=== PATIENT | male | born 2000 | race Caucasian/White ===

== ENCOUNTER → 2018-07-25 17:37 | Outpatient (CLI) | payer OTHER, SELFPAY ==
--- NOTE | 2018-07-25 17:53 | MRI_ITS ---
STUDY: MR PELVIS WITHOUT CONTRAST REASON FOR EXAM: Male, 18 years old. Bilateral groin pain for 2 years after football injury. TECHNIQUE: Standardized fat and water weighted pulse sequences were obtained in all 3 orthogonal planes. COMPARISON: None. FINDINGS: Intrapelvic: Normal features of the evaluated portions of the large bowel, rectum, small bowel, pelvic floor and sidewalls, prostate, seminal vesicles, urinary bladder, distal ureters. Myotendinous structures: Normal appearance of the anterior abdominal wall musculature, symmetric and normal appearance of the pelvic girdle musculature, and of the distal psoas and paraspinous muscles. There is no evidence of muscular strain, muscular tear, or bursitis. Lumbosacral spine: Normal disc intervals between L3 and S1. No degenerative features of the lumbar spine. No evidence of stenosis. Normal sacrum, coccyx and SI joints. Bony pelvis: Intact. There is no bone edema. There is no evidence of prior fracture. Lymphadenopathy: There is no inguinal lymphadenopathy or intrapelvic lymphadenopathy. Inguinal canals: No evidence of hernia. Right hip: Normal right hip joint and proximal femur. Left hip: Normal left hip joint and proximal Scrotal contents: Normal. Femur. MRI/Pelvis (Routine) IMPRESSION: Normal unenhanced MRI of the pelvis. Electronically Signed: Jeevan Mcgregor, at 19:29 EST Tel , Service support ,
== END ==
PROVIDERS: Family Provider Family Medicine; PCP Family Medicine; Referring Provider Family Medicine; Visit Provider Family Medicine
DX: S76.219A Strain of adductor muscle, fascia and tendon of unspecified thigh, initial encounter (principal)
CPT/HCPCS: 72195

== ENCOUNTER 2018-09-11 07:30 | Outpatient (RCR) | payer OTHER, SELFPAY ==
--- NOTE | 2018-08-09 09:47 | HP.PTEVAL ---
Patient's Visit Information BELEN BROWNE is a 18 year old M referred to Physical Therapy by Vel Brink with a diagnosis of Groin strain. Date of Evaluation: 08/09/18 Physical Therapist: Lamont Dunne DPT, OC - Visit Plan Frequency: 3x /Week Duration: 4-6 Weeks Plan: 3x/week for 2-4 weeks for : US thermal to R groin area psoas. STM to R Adductors hip and stretch. Eccentric strength to R adductors. Gradual progression of hip strength. HEP R hip strength ecc adductors. Progression to squat as pain allows monitorring technique. - Subjective Findings: R groin, waist and abs Painful for 2 years, had therapy but did not go away. Normally it is annoying 2/10 intermittently. Up to 7/10 some days worse at end of work week and after working out. Enjoys runnign but is sometimes worse after squatting. Is an [employer] and on feet all day. Some days worse than others. Sleeping is not great but that is normal for him, unaffected by injury. Had therapy 2 years ago which did nto take care of it. Pt wanted to try to treat it again. Had MRI recently of pelvis and was normal. [place] ex specific to this injury. avoiding squatting. LB is healthy. No coughing sneezing pain. - Pain R groin. Pain Intensity (Out of 10): 2 Pain Intensity Range: 0, 7 - Objective R groin tender at psoas and into adductor attachment B. LB ROM full and painfree. Walks normal and I, trasnfers normal. reflexes patella and achilles 2/3. Sensation LE WNl to gross light touch. Strength LE 5/5 and pain with adduction especially in an abducted position moderately and hip flexion minimally. - FADDIR, slight + ASHELY. - scouring test. Tightness in posterior hip muscles, piriformis and gluts mildly, no pain. Squatting is a little tender the deeper he goes in R groin. - Goals Goal 1:: Pain in R groin diminished by 90% to 1/10 at worst adn scarce. Goal Time Frame: 4-6 Weeks Goal 2:: I approp HEP to minimize future problems. Goal Time Frame: 4-6 Weeks Goal 3:: Squat for ex without R groin pain. Goal Time Frame: 4-6 Weeks - Rehabilitation Potential Physical Therapy Diagnosis: R groin strain. Rehabilitation Potential: Questionable - Anticipated Interventions Patient/Client Instruction: Educate patient on: Condition, Plan of Care For the Purpose of:: To decrease pain, To improve muscle performance and motor function Therapeutic Exercise to Include: Strength training, Flexibilty training, Passive ROM, Active ROM For the Purpose of:: To decrease pain, To increase ROM, To improve nutrient delivery to tissue, To improve muscle performance and motor function, To improve ability of physical actions for home/community/work/leisure Manual Therapy Techniques to Include: Passive ROM, Soft tissue mobilization For the Purpose of:: To decrease pain, To increase ROM, To improve muscle performance and motor function, To improve ability of physical actions for home/community/work/leisure Ultrasound (thermal/non thermal): Yes - thermal R psoas area For the Purpose of:: To improve nutrient delivery to tissue, To improve muscle performance and motor function Thank you for the opportunity to evaluate your patient. For Medicare and Medicare HMO plans, please review the plan of care and approve it. It will need to be FAXED BACK to us at [phone] for Medicare purposes. For Medicare only, by signing this I certify the plan of care. Please let me know if there are questions or concerns regarding this plan of care. Physician Signature: Date:
--- NOTE | 2018-09-11 07:51 | HP.PTDCSUM_ITS ---
HP - PT D/C Summary It has been my pleasure to treat BELEN BROWNE under orders from Domingo Brink MD, for the diagnosis of Groin strain for a total of 8 visit(s). Discharge Date: Please see the following information for a summary of their discharge status. - Subjective Subjective: Stretching still helps and can tel lit is important. If he does not stretch then he might have pain with walking. Goes away with stretching, to doctor tomorrow Dr. Brink. Trying to stretch daily. Ran a fews days but running made groin worse. Decline sit ups also made him worse. [place] after the workout. Sleep is normal. Work bothered him one day when walking as he did not stretch that day. No squatting yet. No pain since last end of work day. - Pain R groin. Pain Intensity (Out of 10): 0 - Overall Improvement % Improvement: 75 - Objective Objective/Function: has full aROM and PROM, only pain is with resisted adductor SLR on R, side shiffle and gait are normal. - Goals Goal 1:: Pain in R groin diminished by 90% to 1/10 at worst adn scarce. Goal Progress: Progressing Goal 2:: I approp HEP to minimize future problems. Goal Progress: Goal Met Goal 3:: Squat for ex without R groin pain. Goal Progress: Goal Met - Plan Plan: Pt to f/u with doctor tomorrow and seek other options, otherwise 2x/week for 2-4 weeks to progress eccentric strength and back to full workout unless doctor has other options. Pt to jim[facility] doctor visit. - D/C Information If there are questions or concerns regarding this patient's physical therapy, please feel free to call me at [phone]. Thank you for the referral of this patient. Sincerely, Lamont Dunne, DPT, OCS, CSCS
== END 2018-09-11 19:00 | disposition home or self-care (01) ==
LOC: PT 07:30
PROVIDERS: Family Provider Family Medicine; PCP Family Medicine; Referring Provider Family Medicine; Visit Provider Family Medicine
DX: S76.919D Strain of unspecified muscles, fascia and tendons at thigh level, unspecified thigh, subsequent encounter (principal)
CPT/HCPCS: 97110; 97140; 97162; 97530

== ENCOUNTER → 2018-09-12 16:04 | Outpatient (CLI) | payer OTHER, SELFPAY ==
[2016-01-13 08:30] VITALS: BMI 23.3
--- NOTE | 2018-09-12 16:06 | RAD_ITS ---
STUDY: X-RAY - RIGHT WRIST REASON FOR EXAM: Right wrist pain, question scapholunate dissociation. TECHNIQUE: 3 view(s) of the wrist were obtained. COMPARISON: None. FINDINGS: Normal visualized distal radius and ulna. Normal radiocarpal articulation. Normal distal radioulnar articulation. Normal carpal bones. Normal carpal articulations. Normal carpometacarpal articulation of the thumb. Normal second through fifth carpometacarpal articulations. Normal visualized metacarpal bones. The soft tissue structures are unremarkable. RAD/Wrist min 3 Views IMPRESSION: Normal x-ray examination of the right wrist without demonstrated widening of the scapholunate interval. Electronically Signed: Efren Nayak MD at 10:41 EST Tel , Service support ,
== END ==
PROVIDERS: Family Provider Family Medicine; PCP Family Medicine; Referring Provider Family Medicine; Visit Provider Family Medicine
DX: M25.531 Pain in right wrist (principal)
CPT/HCPCS: 73110

== ENCOUNTER → 2024-11-06 | Outpatient (CLI) | payer OTHER, SELFPAY ==
[2024-11-06 10:25] LABS: Absolute Neutrophil Count 2.5 X10^3/uL (2.0-7.7); Basophil# 0.04 X10^3/uL; Basophil% 0.6 % (0-1); Eosinophil# 0.22 X10^3/uL; Eosinophils% 3.4 % (0-5); Hematocrit 45.8 % (40-54); Hemoglobin 15.5 g/dL (13.0-16.5); Lymphocyte % 47.5 % (19-41); Mean Corp Hgb Conc 33.8 g/dL (32-36); Mean Corpuscular Hgb 29.3 pg (27.0-32.0); Mean Corpuscular Volume 86.6 fL (80-94); Monocyte# 0.69 X10^3/uL; Monocyte% 10.6 % (0-10); NRBC Flagged by Analyzer 0 % (0-5); Neutrophil # 2.47 X10^3/uL (2.7-7.7); Neutrophil % 37.7 % (47-70); Platelet Count 249 K/mm3 (150-450); RBC Distribution Width CV 11.8 % (11.6-14.6); RBC Distribution Width SD 37.4 fl (35.1-43.9); Red Blood Count 5.29 M/mm3 (4.6-6.2); White Blood Count 6.5 K/mm3 (4.4-11.0)
[2024-11-06 10:30] LABS: Erythrocyte Sedimentation Rate 2 mm/hr (0-20)
[2024-11-06 11:48] LABS: ALB/GLOB Ratio 1.7 RATIO (0.9-2.4); AST(SGOT) 25 U/L (<=37); Alanine Aminotransfer ALT/SGPT 20 U/L (<=46); Albumin, Serum 4.6 g/dL (3.5-5.0); Alkaline Phosphatase 80 U/L (40-129); Anion Gap 11 (5-15); BUN 13 mg/dL (4-19); BUN/Creat Ratio 12.7 RATIO (10-20); Calcium 9.5 mg/dL (7.6-11.0); Chloride 102 mmol/L (96-108); Cholesterol 165 mg/dL (<=200); EST Glomerular Filtration Rate 102 (>60); Globulin 2.6 g/dL (2.2-4.2); Glucose 91 mg/dL (70-99); High Density Lipoprotein 54 mg/dL; Low Density Lipoprotein Calc. 99 mg/dL; Potassium 3.7 mmol/L (3.3-5.1); Protein, Total 7.2 g/dL (5.9-8.4); Sodium Level 140 mmol/L (133-145); Total Bilirubin 0.92 mg/dL (0.00-1.30); Triglycerides 60 mg/dL; Very Low Density Lipoprotein 12 mg/dL (5-40); Vitamin D,25 Hydroxy 28.9 ng/mL (30-100); cholesterol:hdl ratio screen 3.06
== END | disposition home or self-care (01) ==
LOC: MTLAB 07:04
PROVIDERS: PCP Family Medicine; Referring Provider Family Medicine; Visit Provider Family Medicine
DX: R53.83 Other fatigue (principal)
CPT/HCPCS: 36415; 80053; 80061; 82306; 84443; 85025; 85652